=== PATIENT | female | born 1940 | race Caucasian/White ===

== ENCOUNTER → 2016-09-24 | Outpatient (CLI) | payer OTHER ==
[~2016-09-24] MED LIST: ATEN50TA8 PO
[2016-09-24 16:48] LABS: BLOOD UREA NITROGEN 29 mg/dl (7-18); BUN/CREATININE RATIO 29.3 (10-20); CALCIUM 8.9 mg/dl (8.5-10.1); CARBON DIOXIDE 29 mmol/L (21-32); CHLORIDE 106 mmol/L (98-107); GLUCOSE 118 mg/dl (70-99); MAGNESIUM 2.3 mg/dl (1.8-2.4); POTASSIUM 3.8 mmol/L (3.5-5.1); SODIUM 143 mmol/L (136-145)
[2016-09-24 16:49] LABS: PHOSPHORUS 2.5 mg/dl (2.5-4.9)
== END | disposition home or self-care (01) ==
LOC: C.LAB1850 15:29
PROVIDERS: ATTEND Internal Medicine Nephrology
DX: N17.9 Acute kidney failure, unspecified (principal)

== ENCOUNTER → 2016-10-02 | Outpatient (CLI) | payer OTHER ==
--- NOTE | 2016-10-02 16:36 | MAMMOGRAPHY REPORT ---
BILATERAL DIGITAL SCREENING MAMMOGRAM WITH CAD: 10/02/2016 CLINICAL HISTORY: Routine screening. Patient has no complaints. TECHNIQUE: Bilateral CC and MLO views were obtained. Current study was also evaluated with a Comput er Aided Detection (CAD) system. COMPARISON: Comparison is made to exams dated: 12/21/2014 mammogram, 12/19/2012 mammogram, 03/28/2010 mammogram, and 12/19/2011 mammogram - [facility]. BREAST COMPOSITION: There are scattered areas of fibroglandular density in both breasts. FINDINGS: There is a 5 mm circumscribed mass in the lower inner anterior left breast that is slight ly more prominent compared to prior available mammograms. Definitive characterization with ultrasou nd and possible additional mammographic views are recommended. An oval lobulated and circumscribed 4 x 6 mm mass in the lower inner anterior right breast appears s table. No focal areas of architectural distortion or suspicious calcifications are seen bilaterally . IMPRESSION: ACR BI-RADS CATEGORY 0: INCOMPLETE EVALUATION: NEED ADDITIONAL IMAGING EVALUATION The increasingly prominent 5 mm mass in the medial left breast needs additional evaluation. The patient will be called to schedule an appointment. Approximately 10% of breast cancers are not detected with mammography. A negative mammographic repor t should not delay biopsy if a clinically suggestive mass is present. Dulce Guzman M.D. ay/:10/02/2016 15:42:18 Cargo Bracer: Rowan RICH(Blake)(Aaron), [facility] letter sent: Addl Imaging 0 BI-RADS Code: ACR BI-RADS Category 0: Incomplete Evaluation: Need Additional Imaging Evaluation
== END | disposition home or self-care (01) ==
LOC: C.MAMM 13:31
PROVIDERS: ATTEND Family Medicine
DX: Z12.31 Encounter for screening mammogram for malignant neoplasm of breast (principal); N63 Unspecified lump in breast

== ENCOUNTER → 2016-10-24 | Outpatient (CLI) | payer OTHER ==
--- NOTE | 2016-10-24 15:02 | MAMMOGRAPHY REPORT ---
ULTRASOUND OF LEFT BREAST: 10/24/2016 CLINICAL HISTORY: 76-year-old woman called back from screening mammography for an increasing circums cribed mass in the lower inner quadrant of the left breast. COMPARISON: Comparison is made to exams dated: 10/02/2016 mammogram, 12/21/2014 mammogram, 12/19/2011 mammogram, 03/28/2010 mammogram, and 12/19/2012 mammogram - [facility]. FINDINGS: Targeted ultrasound was performed in the 8:00 through 10:00 left breast to evaluate for t he subtly increasing circumscribed mass seen mammographically. In the 9:00 axis, 4 cm from the nipp le, there is an oval parallel circumscribed anechoic to hypoechoic mass. No significant posterior a coustic enhancement or posterior shadowing are appreciated. No internal vascularity is documented. It measures 5.0 x 2.6 x 5.2 mm. Without harmonics, it appears more solid in nature, and given the slow increase in size mammographically, definitive characterization with ultrasound guided cyst aspi ration versus core needle biopsy is recommended. IMPRESSION: ACR BI-RADS CATEGORY 4: SUSPICIOUS - FOLLOW-UP RECOMMENDED Left breast ultrasound guided cyst aspiration versus core needle biopsy is recommended for an indete rminate 5 mm mass in the 9:00 left breast, thought to correlate with a slowly enlarging mammographic mass. These results and recommendations were discussed with the patient at the time of the exam. She tent atively scheduled the biopsy prior to leaving our department. Dulce Guzman M.D. ay/:10/24/2016 14:48:54 Pressure Sealer And Tester: Dr. Dulce Guzman, [facility] letter sent: Abnormal 4/5 BI-RADS Code: ACR BI-RADS Category 4: Suspicious
== END | disposition home or self-care (01) ==
LOC: C.MAMM 10:32
PROVIDERS: ATTEND Family Medicine
DX: N63 Unspecified lump in breast (principal)

== ENCOUNTER → 2016-10-31 | Outpatient (CLI) | payer OTHER ==
--- NOTE | 2016-10-31 12:41 | MAMMOGRAPHY REPORT ---
ASPIRATION LEFT BREAST: 10/31/2016 CLINICAL HISTORY: 76-year-old woman with a slowly enlarging mammographic mass in the 8:00 to 9:00 le ft breast that appears cystic in nature. She presents for ultrasound guided cyst aspiration to ensu re resolution. COMPARISON: Comparison is made to exams dated: 12/21/2014 mammogram, 12/19/2012 mammogram, 12/19/2011 mammogram, 03/28/2010 mammogram, and 10/02/2016 mammogram - [facility]. PATIENT CONSENT: Procedures of both ultrasound guided cyst aspiration and ultrasound-guided core nee dle biopsy were explained to the patient including the differences between the 2 procedures, in case the cyst did not aspirate. After explaining the risks, benefits and alternatives to the patient, i nformed consent was obtained verbally and in writing. Specific risks include: bleeding, infection an d puncture of adjacent structure. A time out was preformed and the left breast was agreed as the sit e for cyst aspiration versus core biopsy. PROCEDURE DESCRIPTION: The hypoechoic cystic appearing mass in the 8:00 left breast was identified. 1% buffered lidocaine was administered subcutaneously and intraparenchymally as local anesthesia. A 22 gauge needle was advanced to into the cystic appearing mass. Aspiration was performed and the cy st completely resolved. Sonographic images were obtained to document complete resolution. The flui d was clear and straw-colored, therefore discarded. Postprocedure left CC and MLO tomosynthesis images were obtained. These images demonstrate complete resolution of the mammographic mass in question, confirming mammographicsonographic correlation. There is no mammographic evidence of malignancy in the left breast. Recommend follow-up in 1 year f or next annual screening mammogram. IMPRESSION: ASPIRATION Status post aspiration to resolution of a cystic mass in the 8:00 left breast. The mammographic mas s resolved after aspiration, confirming mammographic-sonographic correlation. There is no mammograp hic evidence of malignancy in the left breast. Recommend routine mammography in one year. These ne w recommendations were discussed with the patient after the procedure and postbiopsy images obtained at the same time. Dulce Guzman M.D. ay/:10/31/2016 12:05:10 Spd Tech: Nyasia MOORE)(M), [facility]
== END | disposition home or self-care (01) ==
LOC: C.MAMM 10:31
PROVIDERS: ATTEND Family Medicine
DX: N63 Unspecified lump in breast (principal)

== ENCOUNTER → 2017-09-25 | Outpatient (CLI) | payer OTHER ==
[2017-09-26 06:48] LABS: HEMOGLOBIN A1C 6.1 % (4.5-5.6)
--- NOTE | 2017-10-03 10:44 | CODING QUERY MEDICAL NECESSITY ---
SUPPORTING DIAGNOSIS NEEDED A supporting diagnosis is required for the test/procedure performed on this patient in order for us to be reimbursed by the patient's insurance. Please provide a supporting diagnosis for the following test/procedure listed below next to the test name along with your signature. *If there is no additional diagnosis for this patient that would support the following test/procedure please document that below next to the test/procedure. Test(s)/Procedure(s) that require a supporting diagnosis: DOS: 09/25/17 * HEMOGLOBIN A1C DIAGNOSIS: Provider Signature: Date: Thank you Alejandra Franklin [email or web address] Information Management Once completed, please kindly fax back to [phone] For questions please call [phone]
== END | disposition home or self-care (01) ==
LOC: C.LABBFT 11:23
PROVIDERS: ATTEND Nurse Practitioner
DX: I10 Essential (primary) hypertension (principal)

== ENCOUNTER → 2017-10-17 | Outpatient (CLI) | payer OTHER | END | disposition home or self-care (01) | LOC: C.MAMM 13:07 | PROVIDERS: ATTEND Nurse Practitioner | DX: M89.9 Disorder of bone, unspecified (principal); M85.88 Other specified disorders of bone density and structure, other site ==

== ENCOUNTER → 2017-11-20 | Outpatient (CLI) | payer OTHER ==
--- NOTE | 2017-11-20 15:14 | MAMMOGRAPHY REPORT ---
BILATERAL DIGITAL SCREENING MAMMOGRAM TOMOSYNTHESIS WITH CAD: 11/20/2017 CLINICAL HISTORY: Routine screening. Patient has no complaints. TECHNIQUE: Breast tomosynthesis in addition to standard 2D mammography was performed. Current study was also evaluated with a Computer Aided Detection (CAD) system. COMPARISON: Comparison is made to exams dated: 10/31/2016 mammogram, 10/02/2016 mammogram, 12/21/2014 m ammogram, 12/19/2012 mammogram, 12/19/2011 mammogram, and 03/28/2010 mammogram - [facility]. BREAST COMPOSITION: There are scattered areas of fibroglandular density in both breasts. FINDINGS: No suspicious masses, calcifications, or areas of architectural distortion are noted in ei ther breast. There has been no significant interval change compared to prior exams. Small circumscri bed benign-appearing 7 mm mass within the left lower inner quadrant was previously aspirated and was shown to represent a benign cyst; given that the mass is present on the current exam, the findings ar e consistent with cyst reaccumulation. IMPRESSION: ACR BI-RADS CATEGORY 2: BENIGN There is no mammographic evidence of malignancy. A 1 year screening mammogram is recommended. The pa tient will receive written notification of the results. Approximately 10% of breast cancers are not detected with mammography. A negative mammographic report should not delay biopsy if a clinically suggestive mass is present. Ling Freedman M.D. /:11/20/2017 12:31:28 Package Reinspector: Laura RICH(Blake)(Aaron)([place]), [facility] letter sent: Normal 1/2 BI-RADS Code: ACR BI-RADS Category 2: Benign
== END | disposition home or self-care (01) ==
LOC: C.MAMM 11:16
PROVIDERS: ATTEND Nurse Practitioner
DX: Z12.31 Encounter for screening mammogram for malignant neoplasm of breast (principal)